=== PATIENT | female | born 1995 | race Caucasian/White ===

== ENCOUNTER 2016-09-13 04:14 | Emergency (ER) | payer SELFPAY ==
[~2016-09-13] VITALS: Ht 157.5 cm; Wt 65.9 kg
[2016-09-13] MEDS ORDERED: PERTUSS(ACELL),DIPH,TET VAC/PF 0.5 ML VIAL IM ONE (06:30)
[2016-09-13] MEDS ORDERED: LIDOCAINE HCL BUFFERED 1% 20 ML VIAL INJ ONE (06:30)
[2016-09-13 06:50] VITALS: BP 118/79
== END 2016-09-13 07:15 | disposition home or self-care (01) ==
LOC: EMS 04:16
DX: S01.01XA Laceration without foreign body of scalp, initial encounter (principal); X58.XXXA Exposure to other specified factors, initial encounter; Y93.89 Activity, other specified; Y92.89 Other specified places as the place of occurrence of the external cause; Y99.8 Other external cause status
CPT/HCPCS: 12002; 90471; 90715; 99283; J3490